=== PATIENT | female | born 1955 | race Caucasian/White ===

== ENCOUNTER 2019-11-28 16:51 | Inpatient (IN) | payer MEDICARE, OTHER ==
[2019-11-28 17:40] LABS: #Basophils 0.1 thou/uL (0.0-0.2); #Eosinphils 0.3 thou/uL (0.0-0.7); #Lymphocytes 1.3 thou/uL (1.20-3.40); #Monocytes 0.2 thou/uL (0.11-0.59); %Basophils 1.1 % (0.0-1.0); %Lymphocytes 26.9 % (21.0-51.0); %Monocytes 3.6 % (0.0-10.0); %Neutrophils 61.3 % (42.0-75.0); Hemoglobin 7.6 g/dL (12.0-16.0); Mean Corpuscular HGB CONC 32.7 g/dL (32.0-36.0); Mean Corpuscular Hemoglobin 29.7 pg (27.0-31.0); Mean Corpuscular Volume 90.7 fL (78.0-98.0); Mean Platelet Volume 6.8 fL (7.4-10.4); Platelet Count 272 thou/uL (130-400); Red Blood Cell (RBC) Count 2.57 mill/uL (4.20-5.40); White Blood Cell (WBC) Count 4.8 thou/uL (4.8-10.8)
[2019-11-28 18:01] LABS: Bilirubin Negative (Negative); Blood, Urine Negative (Negative); Glucose, Urine (Dipstick) Negative (Negative); Leukocyte Negative (Negative); Nitrite Negative (Negative); Protein, Urine (Dipstick) Negative (Neg-Trace); Urobilinogen 0.2 mg/dL (Less than 2)
[2019-11-28 18:02] LABS: ALT (SGPT) 11 U/L (8-55); AST (SGOT) 13 U/L (5-34); Acetaminophen Less than 6.0 mcg/mL (10.0-30.0); Albumin 1.6 g/dL (3.4-4.8); Alcohol Less than 10 mg/dL (Less than 10); Alkaline Phosphatase 114 U/L (40-110); Anion Gap 10 mmol/L (10-20); Anisocytosis MODERATE=16-30 cells (100X) (0-5/hpf); BUN (Urea Nitrogen) 9 mg/dL (9.8-20.1); Bilirubin, Total 0.2 mg/dL (0.2-1.2); Calc. Creatinine Clearance 0 mL/min (70-130); Calcium 6.8 mg/dL (7.8-10.44); Carbon Dioxide 24 mmol/L (23-31); Chloride 108 mmol/L (98-107); Estimated GFR-MDRD Greater than 90; Globulin 1.8 g/dL (2.4-3.5); Glucose 88 mg/dL (80-115); MDiff Complete? YES; Magnesium 1.6 mg/dL (1.6-2.6); Ovalocytes SLIGHT = 2-5 cells (100X) (0-1/hpf); Platelet Morphology Comment Appears Adequate; Polychromasia SLIGHT = 2-3 cells (100X) (0-2/hpf); Potassium 4.1 mmol/L (3.5-5.1); Protein, Total 3.4 g/dL (6.0-8.3); Salicylate Less than 8.0 mg/dL (15.0-30.0); Schistocytes SLIGHT = 2-5 cells (100X) (0-1/hpf); Sodium 138 mmol/L (136-145)
[2019-11-28 18:02] LABS: Clarity Clear (Clear)
[2019-11-28 18:09] LABS: Amphetamine Not Detected (NotDetected); Barbiturates Screen Not Detected (NotDetected); Benzodiazepine Screen Detected (NotDetected); Cocaine Metabolite Screen Not Detected (NotDetected); Medtox Control Line Valid? VALID (VALID); Medtox Reader # READER 1; Methadone Not Detected (NotDetected); Methamphetamine Not Detected (NotDetected); Opiate Screen Detected (NotDetected); Oxycodone Screen Not Detected (NotDetected); Phencyclidine (PCP) Not Detected (NotDetected); THC/Cannabinoid Screen Not Detected (NotDetected); Tricyclic Screen Not Detected (NotDetected)
--- NOTE | 2019-11-28 18:10 | RAD ---
SINGLE VIEW OF THE CHEST: 11/28/19 COMPARISON: None. HISTORY: Hypotension. FINDINGS: Single view of the chest shows a normal sized cardiomediastinal silhouette. Atelectasis is seen in delon th upper lobes. No consolidation or pleural effusion are seen. IMPRESSION: Bilateral upper lobe atelectasis. POS: C
[2019-11-28] MEDS ORDERED: Norepinephrine 8 MG in Dextrose 5% in Water 242 ML IVPB PRN (18:26)
[2019-11-28] MEDS ORDERED: Cefepime 2 GM VIAL ONE (18:59)
[2019-11-28] MEDS ORDERED: Vancomycin HCl 1.75 GM in Sodium Chloride 0.9% 500 ML IVPB ONE (19:15)
--- NOTE | 2019-11-28 19:20 | RAD ---
RADIOGRAPH CHEST 1 VIEW: DATE: 11/28/2019 TIME: 6:53 PM HISTORY: 64-year-old female status post central line placement COMPARISON: 11/28/2019 5:52 PM FINDINGS: Vertically descending catheter from right medial neck with distal tip overlying upper portion of righ t atrium is new since the prior study. This is a supine image, which would be insensitive for pneumothorax detection. The interstitial densities appear diffusely worse, with pulmonary venous engorgement now, on the curr ent study compared to the previous, but at least some of this could be all due to supine positioning. IMPRESSION: 1. Right internal jugular central venous catheter placement. 2. Apparent pulmonary venous congestion. 3. Recommend upright radiograph to rule out pneumothorax.
[2019-11-28] MEDS ORDERED: Norepinephrine 8 MG/0.9% NS 250 ML IVPB SCH (19:30)
[2019-11-28] MEDS ORDERED: Sodium Chloride 0.9% 1,000 ML IV SCH (19:30)
[2019-11-28 21:00] VITALS: BMI 28.0
--- NOTE | 2019-11-28 21:25 | HP ---
CHIEF COMPLAINT: Low blood pressure. HISTORY OF PRESENT ILLNESS: Ms. Nuñez is a 64-year-old female with past medical history of coronary artery disease, chronic bronchitis, chronic pain with Dilaudid pump implanted, was brought to the emergency room by EMS for hypotension. As per EMS, home health care nurse called the EMS due to low blood pressure. The patient was recently hospitalized at [facility] about 10 days ago for weakness, had cardiac workup and was discharged on cefdinir and Bactrim for urinary tract infection. The patient denies chest pain or shortness of breath. Workup in the emergency room, the patient was hypotensive with blood pressure 79/50, pulse is 73, low oxygen saturation of 89% on room air and the patient also was found to be hypothermic with a temperature of 95. A septic workup including viral panel was done in the ED. Central venous catheter was inserted and patient was started on pressors. Chest x-ray shows bilateral upper lobe atelectasis ?, ? pulmonary venous congestion. Urine drug screen is positive for benzos and opiates. The patient is being admitted to the intensive care unit for further management. PAST MEDICAL HISTORY: 1. Chronic bronchitis. 2. Coronary artery disease/MT. 3. Chronic pain. PAST SURGICAL HISTORY: 1. Skin cancer removal from nose. 2. Cholecystectomy. 3. Tonsillectomy. 4. Tubal ligation. PSYCHIATRIC HISTORY: Includes depression. ALLERGIES: NO KNOWN ALLERGIES. HOME MEDICATIONS: See home medication reconciliation form for updated medications. Home medications include Plavix and Dilaudid injection pump. REVIEW OF SYSTEMS: Review of 14 systems negative except what is mentioned in history of present illness. PHYSICAL EXAMINATION: GENERAL: The patient is awake, alert, oriented, does not appear to be in acute distress. VITAL SIGNS: Blood pressure was 70/50. After patient started on Levophed, current blood pressure 137/77, pulse is 91, temperature was 95.5, pulse oximetry was 89% on room air. Currently, it is 91% on 3 L. HEAD AND NECK: Normocephalic, atraumatic. NECK: Supple. No JVD. CHEST: Coarse bilateral breath sounds. HEART: S1, S2. Regular. ABDOMEN: Soft, nontender. Bowel sounds present. NEUROLOGIC: Awake, alert, oriented. No focal deficits. PSYCHIATRIC: Unable to assess. EXTREMITIES: No clubbing or cyanosis. LABORATORY DATA: Chest x-ray as mentioned above in history of present illness. Urine drug screen is positive for benzodiazepine and opiates. CBC; hemoglobin 7.6, platelets 272. BUN is 9, creatinine 0.6. Lactic acid 2.5. ASSESSMENT: 1. Shock?, septic? 2. Suspected viral pneumonia/COVID cannot be entirely ruled out. 3. Anemia, unknown baseline hemoglobin. Rectal exam; as per ER physician, yellow stool. 4. Chronic pain, on Dilaudid pump. The patient does not have the remote to turn it off. 5. Respiratory failure, ? acute/? Chronic. 6. Chronic bronchitis. 7. Coronary artery disease. 8. Hypothermia. PLAN: 1. Admit to ICU. 2. Continue with vasopressor for now. The patient is on Levophed, titrate to map of 65. 3. Dilaudid pump needs to be turned off. Currently, patient does not have access to the remote to turn it off at this point. I discussed the case with ER nurse. We will try to get hold of patient's family or physician, who has access to the pump so that it can be turned off. 4. Continue empiric IV antibiotics for now. 5. Pulmonary/Critical Care consulted for critical care management. 6. Given low hemoglobin, the patient on Plavix, GI bleed cannot be entirely ruled out, we will start the patient on IV proton pump inhibitor, monitor hemoglobin and hematocrit. 7. Re-consult home medications. 8. DVT prophylaxis with SCDs. 9. Expected length of stay, 2 midnights or more. Job ID: [id number]
[2019-11-28 22:25] LABS: Hemoglobin 7.9 g/dL (12.0-16.0)
[2019-11-28 22:41] LABS: Lactic Acid 1.4 mmol/L (0.5-2.2)
[2019-11-28] MEDS ORDERED: hydrOXYzine 25 MG TAB PO PRN (23:10)
[2019-11-28] MEDS ORDERED: Promethazine 25 MG TAB PO PRN (23:11)
[2019-11-28] MEDS ORDERED: Gabapentin 300 MG CAP PO PRN (23:11)
[2019-11-29] MEDS: Cefepime 1 GM in Sodium Chloride 0.9% 100 ML IVPB SCH ×3 (01:01→18:13)
[2019-11-29] MEDS: Pantoprazole 40 MG VIAL IVP SCH ×2 (01:02→07:51)
[2019-11-29] MEDS: Sodium Chloride 0.9% 1,000 ML IV SCH ×2 (01:02→06:18)
[2019-11-29 04:54] LABS: #Basophils 0.1 thou/uL (0.0-0.2); #Eosinphils 0.4 thou/uL (0.0-0.7); #Lymphocytes 1.7 thou/uL (1.20-3.40); #Monocytes 0.2 thou/uL (0.11-0.59); #Neutrophils 2.9 thou/uL (1.40-6.50); %Basophils 1.2 % (0.0-1.0); %Eosinophils 6.9 % (0.0-10.0); %Lymphocytes 32.3 % (21.0-51.0); %Monocytes 4.5 % (0.0-10.0); Mean Corpuscular HGB CONC 32.6 g/dL (32.0-36.0); Mean Corpuscular Hemoglobin 29.3 pg (27.0-31.0); Mean Corpuscular Volume 90.1 fL (78.0-98.0); Mean Platelet Volume 7.1 fL (7.4-10.4); Platelet Count 296 thou/uL (130-400); RBC Distribution Width 21.9 % (11.5-14.5); Red Blood Cell (RBC) Count 2.71 mill/uL (4.20-5.40); White Blood Cell (WBC) Count 5.3 thou/uL (4.8-10.8)
[2019-11-29 05:16] LABS: ALT (SGPT) 10 U/L (8-55); AST (SGOT) 13 U/L (5-34); Albumin 1.7 g/dL (3.4-4.8); Alkaline Phosphatase 126 U/L (40-110); Anion Gap 8 mmol/L (10-20); BUN (Urea Nitrogen) 8 mg/dL (9.8-20.1); Bilirubin, Total 0.3 mg/dL (0.2-1.2); Calc. Creatinine Clearance 89 mL/min (70-130); Calcium 7.2 mg/dL (7.8-10.44); Carbon Dioxide 25 mmol/L (23-31); Chloride 106 mmol/L (98-107); Estimated GFR-MDRD 88; Glucose 77 mg/dL (80-115); Potassium 3.9 mmol/L (3.5-5.1); Protein, Total 3.7 g/dL (6.0-8.3); Sodium 135 mmol/L (136-145)
[2019-11-29] MEDS ORDERED: Norepinephrine 8 MG in Dextrose 5% in Water 242 ML IVPB SCH (07:00)
[2019-11-29] MEDS: Vancomycin 1 GM in Premix Bag 1 BAG IVPB SCH ×2 (07:50→20:06)
[2019-11-29] MEDS ORDERED: Enoxaparin Sodium 40 MG/0.4 ML SYRINGE SC ONE (10:00)
--- NOTE | 2019-11-29 10:47 | CON ---
DATE OF CONSULTATION: HISTORY OF PRESENT ILLNESS: Nafisa Nuñez is a 64-year-old female, who was admitted to the hospital with hypotension. She has a longstanding history of chronic pain. She is on some kind of a Dilaudid pump prescribed elsewhere. She was brought to the ER with blood pressure of 79 systolic, respiratory rate 23, saturations 89% on room air, and pulse 73. She had no other symptoms except she was recently discharged from another hospital outside the area with a diagnosis of presumed UTI and some kind of cardiac workup done. PAST MEDICAL HISTORY: Apparently bronchitis and coronary artery disease. PAST SURGICAL HISTORY: Cholecystectomy, tonsils, tubal ligation, and nose surgery. HOME MEDICATIONS: Includes: 1. Metoprolol 25. 2. Soma 350. 3. Aspirin. 4. Amiodarone 200. 5. Hydroxyzine 50. 6. Omeprazole. 7. Tizanidine 4. 8. Hydrochlorothiazide 25. 9. Cymbalta 60. 10. Gabapentin 600. CURRENT MEDICATIONS: She is now on: 1. Maxipime. 2. Levophed. 3. Vancomycin. SOCIAL HISTORY: No alcohol or tobacco use. PHYSICAL EXAMINATION: VITAL SIGNS: Blood pressure 122/62, saturations are , respiratory rate 18. CHEST: No wheezing or crackles. CARDIAC: Normal S1 and S2. No gallops. ABDOMEN: No masses. LABORATORY DATA: White count 5,000, hematocrit 24, and platelet count 296. Lytes are normal. UA is normal. Drug screen shows opiates and benzodiazepines. So far, influenza negative. Awaiting COVID serology test. X-ray was clear. ASSESSMENT: 1. Hypotension probably medication-related. 2. Unknown coronary artery disease. 3. Chronic pain. PLAN: Await serology results. If this is negative she can be removed from the ICU. Continue hydration. Empiric antibiotics for presumed UTI. At this stage, nothing additional to offer. We will follow while in the ICU. This is a consultation note, 70 minutes, 50% direct patient care. Job ID: [id number]
[2019-11-29] MEDS ORDERED: Promethazine 25 MG TAB PO PRN (17:11)
[2019-11-29] MEDS ORDERED: tiZANidine HCl 4 MG TAB PO PRN (17:11)
[2019-11-29] MEDS ORDERED: Non-Formulary Item 1 EACH (Hydroxyzine Hcl [Hydroxyzine Hcl] 50 MG) PO PRN (17:11)
--- NOTE | 2019-11-29 17:59 | PDOC.HOSPP ---
- Subjective Encounter Date: 11/29/19 Encounter Time: 14:00 Subjective: Off Pressors. Feels better. Case d/w RN - Objective Vital Signs & Weight: Vital Signs (12 hours) Temp Pulse Resp BP Pulse Ox 11/29/19 13:45 98.6 F 83 16 122/76 97 11/29/19 08:00 96 Weight Admit Weight 148 lb Weight 148 lb 12.992 oz Most Recent Monitor Data Heart Rate from ECG 82 NIBP 121/70 NIBP BP-Mean 87 Respiration from ECG 10 SpO2 100 I&O: 11/28/19 11/29/19 11/30/19 06:59 06:59 06:59 Intake Total 940 240 Output Total 1025 460 Balance -85 -220 Result Diagrams: 11/29/19 04:00 11/29/19 04:00 Radiology Reviewed by me: Yes (CXR - reviewed) Hospitalist ROS - Review of Systems Respiratory: denies: cough, dry, shortness of breath, hemoptysis, SOB with excertion, pleuritic pain, sputum, wheezing, other Cardiovascular: denies: chest pain, palpitations, orthopnea, paroxysmal noc. dyspnea, edema, light headedness, other Gastrointestinal: denies: nausea, vomiting, abdominal pain, diarrhea, constipation, melena, hematochezia, other - Medication Medications: Active Medications Generic Name Dose Route Start Last Admin Trade Name Freq PRN Reason Stop Dose Admin Gabapentin 600 mg 11/28/19 23:11 11/29/19 01:00 Neurontin PO 11/29/19 23:12 600 mg ONE PRN Administration Pain Hydroxyzine HCl 50 mg 11/28/19 23:10 11/29/19 01:03 Atarax PO 11/29/19 23:11 50 mg ONE PRN Administration Anxiety/Agitation Cefepime HCl 1 gm/ Sodium 100 mls @ 200 mls/hr 11/29/19 02:00 11/29/19 11:08 Chloride IVPB 100 mls 0200,1000,1800 GERALD Administration Vancomycin HCl 1 gm/ Device 200 mls @ 200 mls/hr 11/29/19 08:00 11/29/19 07: 50 IVPB 200 mls 0800,2000 GERALD Administration Sodium Chloride 1,000 mls @ 75 mls/hr 11/28/19 21:30 11/29/19 06:18 Normal Saline 0.9% IV 1,000 mls .[id number] GERALD Administration Promethazine HCl 25 mg 11/28/19 23:11 11/29/19 14:38 Phenergan PO 11/29/19 23:12 25 mg ONE PRN Administration Nausea Sodium Chloride 10 ml 11/29/19 09:00 11/29/19 07:51 Flush - Normal Saline IVF 10 ml Q12HR GERALD Administration Hosp A/P - Plan Hypotension/Shock ?etio Off pressors Chronic pain on dilaudid pump GERD h/o HTN CAD Chronic Anemia Moderate PEM Hyponatremia PLAN: Pt transferred to Med Restart selected home meds Repeat CXR in AM Await cultures Cont empiric Atbx Echo AM labs Full code. DPOA- daughter
[2019-11-29] MEDS: DULoxetine 60 MG CAP PO SCH (20:05)
[2019-11-29] MEDS: Gabapentin 300 MG CAP PO SCH (20:05)
[2019-11-29] MEDS: Amiodarone 200 MG TAB PO SCH (20:06)
[2019-11-30] MEDS: Sodium Chloride 0.9% 1,000 ML IV SCH ×3 (01:07→20:44)
[2019-11-30] MEDS: Cefepime 1 GM in Sodium Chloride 0.9% 100 ML IVPB SCH ×3 (01:41→17:38)
[2019-11-30 06:02] LABS: #Basophils 0.1 thou/uL (0.0-0.2); #Eosinphils 0.6 thou/uL (0.0-0.7); #Lymphocytes 1.8 thou/uL (1.20-3.40); #Monocytes 0.4 thou/uL (0.11-0.59); #Neutrophils 4.1 thou/uL (1.40-6.50); %Eosinophils 8.9 % (0.0-10.0); %Lymphocytes 25.8 % (21.0-51.0); %Monocytes 5.5 % (0.0-10.0); %Neutrophils 58.8 % (42.0-75.0); Hemoglobin 8.7 g/dL (12.0-16.0); Mean Corpuscular HGB CONC 32.4 g/dL (32.0-36.0); Mean Corpuscular Hemoglobin 29.4 pg (27.0-31.0); Mean Corpuscular Volume 90.9 fL (78.0-98.0); Mean Platelet Volume 6.9 fL (7.4-10.4); Platelet Count 302 thou/uL (130-400); Red Blood Cell (RBC) Count 2.95 mill/uL (4.20-5.40); White Blood Cell (WBC) Count 6.9 thou/uL (4.8-10.8)
[2019-11-30 06:21] LABS: ALT (SGPT) 11 U/L (8-55); AST (SGOT) 14 U/L (5-34); Albumin 1.8 g/dL (3.4-4.8); Alkaline Phosphatase 137 U/L (40-110); Anion Gap 10 mmol/L (10-20); BUN (Urea Nitrogen) 6 mg/dL (9.8-20.1); Bilirubin, Total 0.3 mg/dL (0.2-1.2); Calc. Creatinine Clearance 89 mL/min (70-130); Calcium 7.7 mg/dL (7.8-10.44); Carbon Dioxide 24 mmol/L (23-31); Chloride 107 mmol/L (98-107); Estimated GFR-MDRD 88; Globulin 2.3 g/dL (2.4-3.5); Glucose 84 mg/dL (80-115); Magnesium 1.7 mg/dL (1.6-2.6); Phosphorus 2.9 mg/dL (2.3-4.7); Potassium 3.9 mmol/L (3.5-5.1); Protein, Total 4.1 g/dL (6.0-8.3); Sodium 137 mmol/L (136-145)
[2019-11-30 07:14] LABS: Vancomycin, Trough 19.8 ug/mL
[2019-11-30] MEDS: Enoxaparin Sodium 40 MG/0.4 ML SYRINGE SC SCH (08:08)
[2019-11-30] MEDS: Magnesium Oxide 400 MG TAB PO SCH (08:08)
[2019-11-30] MEDS: Potassium Chloride 20 MEQ TAB PO SCH (08:09)
[2019-11-30] MEDS: DULoxetine 60 MG CAP PO SCH ×2 (08:09→20:45)
[2019-11-30] MEDS: Aspirin Chewable 81 MG TAB PO SCH (08:09)
[2019-11-30] MEDS: Vancomycin 1 GM in Premix Bag 1 BAG IVPB SCH ×2 (08:09→20:50)
[2019-11-30] MEDS: Gabapentin 300 MG CAP PO SCH ×4 (08:09→20:45)
[2019-11-30] MEDS: Amiodarone 200 MG TAB PO SCH ×2 (08:29→20:45)
[2019-11-30] MEDS: Clopidogrel Bisulfate 75 MG TAB PO SCH (08:29)
--- NOTE | 2019-11-30 09:34 | RAD ---
PORTABLE CHEST: Date: 11/30/2019 PROVIDED CLINICAL HISTORY: Shortness of breath. FINDINGS: Comparison with 11/28/2019. The lungs are hypoinflated, limiting evaluation. The cardiac silhouette appears prominent. Right IJ c entral line is again seen, tip of which projects overlying expected location of cavoatrial junction. No focal consolidation, pleural fluid, or pneumothorax apparent. IMPRESSION: Hypoinflated exam. POS: HONEY
[2019-12-01] MEDS ORDERED: Melatonin 3 MG TAB PO SCH (00:15)
[2019-12-01] MEDS: Cefepime 1 GM in Sodium Chloride 0.9% 100 ML IVPB SCH (01:42)
[2019-12-01 06:48] LABS: #Basophils 0.1 thou/uL (0.0-0.2); #Eosinphils 0.2 thou/uL (0.0-0.7); #Lymphocytes 1.3 thou/uL (1.20-3.40); #Monocytes 0.3 thou/uL (0.11-0.59); #Neutrophils 3.1 thou/uL (1.40-6.50); %Basophils 1.1 % (0.0-1.0); %Eosinophils 4.4 % (0.0-10.0); %Lymphocytes 25.6 % (21.0-51.0); %Monocytes 5.3 % (0.0-10.0); %Neutrophils 63.6 % (42.0-75.0); Hemoglobin 8.1 g/dL (12.0-16.0); Mean Corpuscular HGB CONC 32.5 g/dL (32.0-36.0); Mean Corpuscular Hemoglobin 29.9 pg (27.0-31.0); Mean Corpuscular Volume 91.8 fL (78.0-98.0); Mean Platelet Volume 6.7 fL (7.4-10.4); Platelet Count 295 thou/uL (130-400); Red Blood Cell (RBC) Count 2.72 mill/uL (4.20-5.40); White Blood Cell (WBC) Count 4.9 thou/uL (4.8-10.8)
[2019-12-01 07:13] LABS: ALT (SGPT) 11 U/L (8-55); AST (SGOT) 14 U/L (5-34); Albumin 1.8 g/dL (3.4-4.8); Alkaline Phosphatase 133 U/L (40-110); Anion Gap 7 mmol/L (10-20); BUN (Urea Nitrogen) 6 mg/dL (9.8-20.1); Bilirubin, Total 0.5 mg/dL (0.2-1.2); Calc. Creatinine Clearance 111 mL/min (70-130); Calcium 7.7 mg/dL (7.8-10.44); Carbon Dioxide 29 mmol/L (23-31); Chloride 109 mmol/L (98-107); Estimated GFR-MDRD Greater than 90; Globulin 2.1 g/dL (2.4-3.5); Glucose 76 mg/dL (80-115); Magnesium 1.8 mg/dL (1.6-2.6); Phosphorus 2.5 mg/dL (2.3-4.7); Potassium 3.2 mmol/L (3.5-5.1); Protein, Total 3.9 g/dL (6.0-8.3); Sodium 142 mmol/L (136-145)
[2019-12-01] MEDS: Vancomycin 1 GM in Premix Bag 1 BAG IVPB SCH ×2 (08:35→09:04)
[2019-12-01] MEDS: Potassium Chloride 20 MEQ TAB PO SCH (08:37)
[2019-12-01] MEDS: Clopidogrel Bisulfate 75 MG TAB PO SCH (08:39)
[2019-12-01] MEDS: Aspirin Chewable 81 MG TAB PO SCH (08:39)
[2019-12-01] MEDS: DULoxetine 60 MG CAP PO SCH ×2 (08:39→21:07)
[2019-12-01] MEDS: Gabapentin 300 MG CAP PO SCH ×3 (08:39→21:07)
[2019-12-01] MEDS: Magnesium Oxide 400 MG TAB PO SCH (08:39)
[2019-12-01] MEDS: Amiodarone 200 MG TAB PO SCH ×2 (08:39→21:07)
[2019-12-01] MEDS: Enoxaparin Sodium 40 MG/0.4 ML SYRINGE SC SCH (08:40)
--- NOTE | 2019-12-01 08:42 | PDOC.HOSPP ---
- Subjective Encounter Date: 11/30/19 Encounter Time: 16:00 Subjective: Patient seen and examined for Hypotension requiring pressors. Feels better. Confused. No new complaints. No overnight events - Objective Vital Signs & Weight: Vital Signs (12 hours) Temp Pulse Resp BP Pulse Ox 12/01/19 00:43 98.4 F 83 18 117/72 94 L 11/30/19 20:44 97.7 F 86 18 140/83 94 L Weight Admit Weight 148 lb Weight 148 lb 12.992 oz Most Recent Monitor Data Heart Rate from ECG 82 NIBP 121/70 NIBP BP-Mean 87 Respiration from ECG 10 SpO2 100 I&O: 11/30/19 12/01/19 12/02/19 06:59 06:59 06:59 Intake Total 5166 548 8305 Output Total 2510 1850 Balance -620 971 -395 Result Diagrams: 12/01/19 06:25 12/01/19 03:30 Radiology Reviewed by me: Yes (CXR - no infiltrate) EKG Reviewed by me: Yes (SR earlier) Hospitalist ROS - Review of Systems ROS unobtainable: due to mental status - Medication Medications: Active Medications Generic Name Dose Route Start Last Admin Trade Name Freq PRN Reason Stop Dose Admin Amiodarone HCl 200 mg 11/29/19 21:00 12/01/19 08:39 Cordarone PO 200 mg Q12HR GERALD Administration Aspirin 81 mg 11/30/19 09:00 12/01/19 08:39 Aspirin Chewable PO 81 mg DAILY GERALD Administration Clopidogrel Bisulfate 75 mg 11/30/19 09:00 12/01/19 08:39 Plavix PO 75 mg DAILY GERALD Administration Duloxetine HCl 60 mg 11/29/19 21:00 12/01/19 08:39 Cymbalta PO 60 mg BID GERALD Administration Enoxaparin Sodium 40 mg 11/30/19 09:00 12/01/19 08:40 Lovenox SC 40 mg 0900 GERALD Administration Gabapentin 600 mg 11/29/19 21:00 12/01/19 08:39 Neurontin PO 600 mg QID GERALD Administration Cefepime HCl 1 gm/ Sodium 100 mls @ 200 mls/hr 11/29/19 02:00 12/01/19 01:42 Chloride IVPB 100 mls 0200,1000,1800 GERALD Administration Vancomycin HCl 1 gm/ Device 200 mls @ 200 mls/hr 11/29/19 08:00 12/01/19 08: 35 IVPB 200 mls 08,1999 GERALD Administration Sodium Chloride 1,000 mls @ 75 mls/hr 11/28/19 21:30 11/30/19 20:44 Normal Saline 0.9% IV 1,000 mls .[id number] GERALD Administration Magnesium Oxide 400 mg 11/30/19 09:00 12/01/19 08:39 Magnesium Oxide PO 400 mg DAILY GERALD Administration Pantoprazole Sodium 40 mg 11/29/19 21:00 12/01/19 08:39 Protonix PO 40 mg BID GERALD Administration Potassium Chloride 20 meq 11/30/19 08:00 12/01/19 08:37 K-Dur PO 20 meq QAM-WM GERALD Administration Sodium Chloride 10 ml 11/29/19 09:00 12/01/19 08:40 Flush - Normal Saline IVF 10 ml Q12HR GERALD Administration - Exam General Appearance: NAD Heart: RRR, no gallops, no rubs, normal peripheral pulses Respiratory: no wheezes, no rales, normal chest expansion, rhonchi Gastrointestinal: non-tender, non-distended, normal bowel sounds, no palpable masses Extremities: no cyanosis, no clubbing, no edema Extremities - other findings: no calf tenderness Neurological: no new deficit Hosp A/P - Plan DVT proph w/SCDs Hypotension/Shock ?etio Off pressors ?Septic shock - POA Acute hypoxic resp failure - POA Hypothermia Chronic pain on dilaudid pump GERD h/o HTN CAD Chronic Anemia Moderate PEM Hyponatremia PLAN: Cont isolation for possible COVID 19 Await cultures Cont empiric Atbx Echo - normal EF Check Cortisol/TSH in AM AM labs Cont IVF Check Orthostatics in AM
[2019-12-01] MEDS ORDERED: Sodium Chloride 0.9% 1,000 ML IV SCH (08:52)
[2019-12-01] MEDS ORDERED: Levothyroxine Sodium 50 MCG TAB PO SCH (12:45)
--- NOTE | 2019-12-01 13:18 | CT ---
CT BRAIN: DATE: 12/01/2019. PROVIDED CLINICAL HISTORY: Altered mental status. FINDINGS: No comparisons. The ventricular system appears normal in size and morphology. There is no evidence for intracranial hemorrhage or mass effect. The extracranial soft tissues and osseous structures dem onstrate an unremarkable CT appearance. IMPRESSION: No evidence for intracranial hemorrhage or mass effect. POS: HONEY
[2019-12-01] MEDS: Cyclobenzaprine 10 MG TAB PO PRN (13:30)
--- NOTE | 2019-12-01 18:13 | PRG ---
DATE OF SERVICE: 12/01/2019 SUBJECTIVE: Ms. Nuñez complains of being weak. She has not been able to even get to the bedside toilet and is stooling in her diaper. She thinks that she is going to be able to go home, but it appears to me that she is going to need a assisted facility. She had a CT of the head today, which showed no obvious hemorrhage or mass effect. OBJECTIVE: VITAL SIGNS: Blood pressure 145/83, although she does have an orthostatic component with standing blood pressure 106/76, saturation 95% on 2 L oxygen. GENERAL: She appears weak and globally debilitated. LUNGS: Rhonchi, but no wheezing. HEART: Regular rate and rhythm. ABDOMEN: Soft. There is no organomegaly. She has normal bowel sounds. EXTREMITIES: She has trace edema. LABORATORY DATA: White count 4900, hemoglobin was 8.1, platelet count 295,000. Her electrolytes earlier today remarkable for sodium 142, potassium 3.2, chloride 109, BUN 8, creatinine 0.5. Calcium, magnesium, and phosphorus were normal. Her TSH is high. Cortisol is normal. Echocardiogram shows preserved ejection fraction 55% to 60%. She does have moderate pulmonary hypertension with RVSP 48. IMPRESSION: 1. Pneumonia, recovering with significant residual weakness. 2. Hypothyroidism. 3. Moderate pulmonary hypertension with right ventricular systolic pressure 48. RECOMMENDATION: I have strongly encouraged that she will be out of bed. I think that going home isn't an unreasonable consideration at this point, and she would appear to be a good candidate for rehab on the inpatient basis. She is going any thyroid supplementation. Job ID: [id number]
[2019-12-01] MEDS: Promethazine 25 MG TAB PO PRN (19:11)
--- NOTE | 2019-12-01 20:04 | PDOC.HOSPP ---
- Subjective Encounter Date: 12/01/19 Encounter Time: 11:30 Subjective: Patient seen and examined for AMS/Hypotension. No fever/chills. Intermittent confusion. States that she has been here for last 5 days. No new complaints. No overnight events - Objective Vital Signs & Weight: Vital Signs (12 hours) BP BP 12/01/19 09:15 134/86 106/67 Weight Admit Weight 148 lb Weight 148 lb 12.992 oz Most Recent Monitor Data Heart Rate from ECG 82 NIBP 121/70 NIBP BP-Mean 87 Respiration from ECG 10 SpO2 100 I&O: 11/30/19 12/01/19 12/02/19 06:59 06:59 06:59 Intake Total 7550 188 0127 Output Total 2510 1850 Balance -620 720 915 Result Diagrams: 12/02/19 05:01 12/02/19 05:01 Hospitalist ROS - Review of Systems ROS unobtainable: due to mental status - Medication Medications: Active Medications Generic Name Dose Route Start Last Admin Trade Name Freq PRN Reason Stop Dose Admin Amiodarone HCl 200 mg 11/29/19 21:00 12/01/19 08:39 Cordarone PO 200 mg Q12HR GERALD Administration Aspirin 81 mg 11/30/19 09:00 12/01/19 08:39 Aspirin Chewable PO 81 mg DAILY GERALD Administration Clopidogrel Bisulfate 75 mg 11/30/19 09:00 12/01/19 08:39 Plavix PO 75 mg DAILY GERALD Administration Cyclobenzaprine HCl 5 mg 12/01/19 12:17 12/01/19 13:30 Flexeril PO 12/03/19 12:18 5 mg TID PRN Administration Muscle Spasm Duloxetine HCl 60 mg 11/29/19 21:00 12/01/19 08:39 Cymbalta PO 60 mg BID GERALD Administration Gabapentin 300 mg 12/01/19 15:00 12/01/19 16:15 Neurontin PO 300 mg TID GERALD Administration Pantoprazole Sodium 40 mg 11/29/19 21:00 12/01/19 08:39 Protonix PO 40 mg BID GERALD Administration Potassium Chloride 20 meq 11/30/19 08:00 12/01/19 08:37 K-Dur PO 20 meq QAM-WM GERALD Administration Promethazine HCl 25 mg 12/01/19 18:49 12/01/19 19:11 Phenergan PO 25 mg Q6H PRN Administration Nausea Sodium Chloride 10 ml 11/29/19 09:00 12/01/19 08:40 Flush - Normal Saline IVF 10 ml Q12HR GERALD Administration - Exam General Appearance: NAD Neck: supple, no JVD Heart: RRR, no gallops Respiratory: CTAB, no rales, no ronchi Gastrointestinal: soft, non-tender, normal bowel sounds Extremities: no cyanosis Neurological: no new deficit Hosp A/P - Plan DVT proph w/SCDs Hypotension/Shock ?etio Off pressors ?Septic shock - POA Acute hypoxic resp failure - POA Hypothermia Toxic Metabolic Encephalopathy - POA Chronic pain on dilaudid pump GERD h/o HTN CAD Chronic Anemia Moderate PEM Hyponatremia Hypothyroidism PLAN: DC COVID 19 isolation Cont empiric Atbx Start low dose Levothyroxine Replace Potassium DC IVF per patient req Orthostatics reviewed - repeat in AM Case d/w daughter in detail - was on phone for >40 mins Record req
[2019-12-01] MEDS: Melatonin 3 MG TAB PO PRN (21:07)
[2019-12-02] MEDS ORDERED: Calcium Carbonate 500 MG ChewTAB PO PRN (04:45)
[2019-12-02] MEDS: Levothyroxine Sodium 50 MCG TAB PO SCH (04:55)
[2019-12-02] MEDS ORDERED: HYDROcodone/Acetaminophen 5/325 mg Tablet PO SCH (05:00)
[2019-12-02 05:18] LABS: #Basophils 0.1 thou/uL (0.0-0.2); #Eosinphils 0.2 thou/uL (0.0-0.7); #Lymphocytes 1.3 thou/uL (1.20-3.40); #Monocytes 0.4 thou/uL (0.11-0.59); #Neutrophils 4.5 thou/uL (1.40-6.50); %Basophils 1.4 % (0.0-1.0); %Eosinophils 3.2 % (0.0-10.0); %Lymphocytes 20.1 % (21.0-51.0); %Monocytes 6.5 % (0.0-10.0); %Neutrophils 68.7 % (42.0-75.0); Hemoglobin 8.5 g/dL (12.0-16.0); Mean Corpuscular HGB CONC 32.5 g/dL (32.0-36.0); Mean Corpuscular Hemoglobin 29.7 pg (27.0-31.0); Mean Corpuscular Volume 91.4 fL (78.0-98.0); Platelet Count 288 thou/uL (130-400); RBC Distribution Width 21.9 % (11.5-14.5); Red Blood Cell (RBC) Count 2.85 mill/uL (4.20-5.40); White Blood Cell (WBC) Count 6.5 thou/uL (4.8-10.8)
[2019-12-02 05:37] LABS: ALT (SGPT) 12 U/L (8-55); AST (SGOT) 13 U/L (5-34); Alkaline Phosphatase 141 U/L (40-110); Anion Gap 7 mmol/L (10-20); BUN (Urea Nitrogen) 5 mg/dL (9.8-20.1); Bilirubin, Total 0.6 mg/dL (0.2-1.2); Calc. Creatinine Clearance 109 mL/min (70-130); Calcium 7.6 mg/dL (7.8-10.44); Carbon Dioxide 28 mmol/L (23-31); Chloride 107 mmol/L (98-107); Estimated GFR-MDRD Greater than 90; Globulin 2.2 g/dL (2.4-3.5); Glucose 76 mg/dL (80-115); Magnesium 1.8 mg/dL (1.6-2.6); Protein, Total 4.2 g/dL (6.0-8.3); Sodium 139 mmol/L (136-145)
[2019-12-02] MEDS ORDERED: Potassium Phosphate 15 MMOL in Sodium Chloride 0.9% 250 ML 250 ML IVPB SCH (07:45)
[2019-12-02] MEDS: Promethazine 25 MG TAB PO PRN ×2 (08:24→14:05)
[2019-12-02] MEDS: DULoxetine 60 MG CAP PO SCH ×2 (08:24→21:25)
[2019-12-02] MEDS: Aspirin Chewable 81 MG TAB PO SCH (08:25)
[2019-12-02] MEDS: Gabapentin 300 MG CAP PO SCH ×3 (08:25→21:25)
[2019-12-02] MEDS: Clopidogrel Bisulfate 75 MG TAB PO SCH (08:25)
[2019-12-02] MEDS: Potassium Chloride 20 MEQ TAB PO SCH ×2 (08:25→17:20)
[2019-12-02] MEDS: Enoxaparin Sodium 30 MG/0.3 ML SYRINGE SC SCH (08:25)
[2019-12-02] MEDS: Amiodarone 200 MG TAB PO SCH ×2 (08:25→21:25)
--- NOTE | 2019-12-02 10:57 | PRG ---
DATE OF SERVICE: 12/02/2019 SUBJECTIVE: A 64-year-old female who was hypertensive when she arrived. Cultures are negative. OBJECTIVE: VITAL SIGNS: Blood pressure is improved at 170/77, temperature 98, pulse 90, respiratory rate 18. CHEST: No wheezing or crackles. CARDIAC: Normal S1 and S2. No gallops. ABDOMEN: No masses. LABORATORY DATA: She is anemic, potassium is 3, otherwise stable. CT head was done yesterday, which was negative. ASSESSMENT: Hypertension, resolved. Hypothyroidism. Chronic pain syndrome. PLAN: From pulmonary standpoint, she appears to be much improved. She is eager to go home. The x-ray showed a nonspecific left basilar infiltrate. This could be related to hypertension. She is stable for discharge home anytime. Pulmonary with follow at a distance. Please call if needed. Job ID: [id number]
--- NOTE | 2019-12-02 11:12 | PDOC.HOSPP ---
- Subjective Encounter Date: 12/02/19 Encounter Time: 11:11 Subjective: Patient seen and examined for Encephalopathy/Hypotension. No CP. No new complaints. No overnight events - Objective Vital Signs & Weight: Vital Signs (12 hours) Temp Pulse Resp BP BP BP Pulse Ox 12/02/19 08:21 98.2 F 90 117/77 103/67 125/75 93 L 12/02/19 08:00 93 L 12/02/19 07:55 98.7 F 78 16 149/73 H 95 Weight Admit Weight 148 lb Weight 148 lb 12.992 oz Most Recent Monitor Data Heart Rate from ECG 82 NIBP 121/70 NIBP BP-Mean 87 Respiration from ECG 10 SpO2 100 I&O: 12/01/19 12/02/19 12/03/19 06:59 06:59 06:59 Intake Total 720 3255 Output Total 3200 400 Balance 720 55 -400 Result Diagrams: 12/02/19 05:01 12/02/19 05:01 Additional Labs: Laboratory Tests 12/01/19 12/01/19 12/02/19 09:24 09:24 05:01 Potassium 3.0 L Phosphorus 2.0 L Albumin 2.0 L Free T4 0.57 L TSH 3rd Generation 14.7046 H Radiology Reviewed by me: Yes (CT brain - negative) Hospitalist ROS - Review of Systems Cardiovascular: denies: chest pain, palpitations, orthopnea, paroxysmal noc. dyspnea, edema, light headedness, other Gastrointestinal: reports: diarrhea (mild). denies: nausea, vomiting, abdominal pain, constipation, melena, hematochezia, other - Medication Medications: Active Medications Generic Name Dose Route Start Last Admin Trade Name Freq PRN Reason Stop Dose Admin Amiodarone HCl 200 mg 11/29/19 21:00 12/02/19 08:25 Cordarone PO 200 mg Q12HR GERALD Administration Aspirin 81 mg 11/30/19 09:00 12/02/19 08:25 Aspirin Chewable PO 81 mg DAILY GERALD Administration Clopidogrel Bisulfate 75 mg 11/30/19 09:00 12/02/19 08:25 Plavix PO 75 mg DAILY GERALD Administration Cyclobenzaprine HCl 5 mg 12/01/19 12:17 12/01/19 13:30 Flexeril PO 12/03/19 12:18 5 mg TID PRN Administration Muscle Spasm Duloxetine HCl 60 mg 11/29/19 21:00 12/02/19 08:24 Cymbalta PO 60 mg BID GERALD Administration Enoxaparin Sodium 30 mg 12/02/19 09:00 12/02/19 08:25 Lovenox SC 30 mg 0900 GERALD Administration Potassium Phosphate 15 mmol/ 255 mls @ 62.5 mls/hr 12/02/19 07:45 12/02/19 09 :35 Sodium Chloride IVPB 12/02/19 11:45 255 mls NOW GERALD Administration Levothyroxine Sodium 50 mcg 12/02/19 06:00 12/02/19 04:55 Synthroid PO 50 mcg 0600 GERALD Administration Melatonin 3 mg 12/01/19 18:02 12/01/19 21:07 Melatonin PO 3 mg HS PRN Administration Insomnia Potassium Chloride 20 meq 12/02/19 08:00 12/02/19 08:25 K-Dur PO 20 meq BID-WM GERALD Administration Promethazine HCl 25 mg 12/01/19 18:49 12/02/19 08:24 Phenergan PO 25 mg Q6H PRN Administration Nausea Sodium Chloride 10 ml 11/29/19 09:00 12/02/19 08:25 Flush - Normal Saline IVF 10 ml Q12HR GERALD Administration - Exam General Appearance: NAD Heart: RRR, no gallops Respiratory: no wheezes, no ronchi Gastrointestinal: non-tender, non-distended, normal bowel sounds Extremities: no cyanosis Neurological: no new deficit Hosp A/P - Plan DVT proph w/SCDs Hypotension/Shock requiring pressors - Sepsis ruled out. Hypotension prob due to hypoalbuminemia/medications Acute hypoxic resp failure - ruled out Hypothermia - resolved Toxic Metabolic Encephalopathy - improving Chronic pain on dilaudid pump GERD h/o HTN CAD Chronic Anemia Moderate PEM Hyponatremia Hypothyroidism PLAN: Atbx dced Replace electrolytes Cont Levothyroxine Repeat Orthostatics in AM Case d/w daughter Add Tina PRN Increase Gabapentin 600 mg TID Records reviewed
[2019-12-02] MEDS: Loperamide HCl 2 MG CAP PO PRN ×2 (11:39→17:25)
[2019-12-02] MEDS: HYDROcodone/Acetaminophen 5/325 mg Tablet PO PRN ×2 (11:41→21:36)
[2019-12-03] MEDS: Melatonin 3 MG TAB PO PRN (01:01)
[2019-12-03] MEDS: Loperamide HCl 2 MG CAP PO PRN ×2 (01:04→08:34)
[2019-12-03] MEDS: Cyclobenzaprine 10 MG TAB PO PRN (03:46)
[2019-12-03 06:09] LABS: Albumin 1.9 g/dL (3.4-4.8); Anion Gap 9 mmol/L (10-20); BUN (Urea Nitrogen) 6 mg/dL (9.8-20.1); BUN/Creatinine Ratio 10.53; Calc. Creatinine Clearance 105 mL/min (70-130); Calcium 7.4 mg/dL (7.8-10.44); Carbon Dioxide 24 mmol/L (23-31); Chloride 109 mmol/L (98-107); Estimated GFR-MDRD Greater than 90; Glucose 75 mg/dL (80-115); Phosphorus 2.3 mg/dL (2.3-4.7); Potassium 3.6 mmol/L (3.5-5.1); Sodium 138 mmol/L (136-145)
[2019-12-03] MEDS: Levothyroxine Sodium 50 MCG TAB PO SCH (06:10)
[2019-12-03] MEDS: Promethazine 25 MG TAB PO PRN (06:10)
[2019-12-03] MEDS: Potassium Chloride 20 MEQ TAB PO SCH ×2 (08:34→16:32)
[2019-12-03] MEDS: Amiodarone 200 MG TAB PO SCH (08:34)
[2019-12-03] MEDS: Clopidogrel Bisulfate 75 MG TAB PO SCH (08:34)
[2019-12-03] MEDS: DULoxetine 60 MG CAP PO SCH (08:34)
[2019-12-03] MEDS: Enoxaparin Sodium 30 MG/0.3 ML SYRINGE SC SCH (08:34)
[2019-12-03] MEDS: Gabapentin 300 MG CAP PO SCH ×2 (08:34→14:57)
[2019-12-03] MEDS: Aspirin Chewable 81 MG TAB PO SCH (08:34)
[2019-12-03 08:52] VITALS: TEMP 98.8
[2019-12-03] MEDS ORDERED: hydrOXYzine 25 MG TAB PO PRN (09:18)
--- NOTE | 2019-12-03 10:32 | PRG ---
DATE OF SERVICE: 12/03/2019 SUBJECTIVE: This morning, she is awake, responsive, going home. OBJECTIVE: VITAL SIGNS: Temperature 99, pulse 86, respiratory rate 16, sats 96% on room air, blood pressure 120/75. CHEST: No wheezing or crackles. CARDIAC: Normal S1 and S2. No gallops. ABDOMEN: No masses. LABORATORY DATA: Lytes are normal. ASSESSMENT: 1. Hypotension, resolved. 2. Chronic pain syndrome. PLAN: Home any time. Pulmonary will follow at a distance. Job ID: [id number]
[2019-12-03] MEDS: HYDROcodone/Acetaminophen 5/325 mg Tablet PO PRN (11:40)
[2019-12-03 12:03] VITALS: BP 115/79
--- NOTE | 2019-12-03 19:47 | DIS ---
DATE OF ADMISSION: 11/28/2019 DATE OF DISCHARGE: 12/03/2019 DISCHARGE DISPOSITION: Home with [facility]. FOLLOWUP: Follow up with primary care physician as scheduled. The patient was seen on the day of discharge. Denies any new complaints. No chest pain, shortness of breath, or palpitations reported. BRIEF HOSPITAL COURSE: The patient is a 64-year-old female with chronic pain syndrome, coronary artery disease, and hypertension, presented to the emergency room with confusion along with low blood pressure. Her blood pressure in the emergency room was in systolic 70s with O2 saturation of 89%. A central line was placed. She was started on empiric antibiotics with Levophed. Echocardiogram showed normal ejection fraction of 55% to 60% with mild mitral regurgitation. Her cultures came back negative. Respiratory viral panel was negative. COVID-19 testing was negative. Her WBC counts were normal without any left shift. Antibiotics were later discontinued. She was also found to have moderate protein energy malnutrition with albumin of 1.8 with a total protein of 3.9. Her hypotension was probably multifactorial. Metoprolol and HCTZ have been discontinued. Due to abnormal TSH, low-dose levothyroxine has been started. She was advised to minimize the muscle relaxants. Inpatient rehab was recommended, however, the patient declined. She will benefit from a 24-hour supervision. Fall precaution was emphasized. SIGNIFICANT LABORATORY DATA: Cortisols 17. TSH 14.7. Free T4 of 0.57. Potassium 3.2. Phosphorus 2.0, sodium 135. WBC 4.8, with hemoglobin 7.6, and platelet count 272. Hemoglobin at discharge is 8.5. FINAL DIAGNOSES: 1. Hypovolemic shock, requiring pressors. Sepsis has been ruled out. 2. Acute hypoxic respiratory failure on admission, probably secondary to significant hypotension, resolved. 3. Hypothermia on admission, resolved. 4. Toxic metabolic encephalopathy on admission, resolved. 5. Chronic pain syndrome, on Dilaudid pump. 6. Gastroesophageal reflux disease. 7. History of hypertension. Please note, antihypertensives have been discontinued. 8. Coronary artery disease. 9. Chronic anemia. 10. Moderate protein energy malnutrition. 11. Hyponatremia. 12. Hypophosphatemia. 13. Hypothyroidism. Job ID: [id number]
--- NOTE | 2019-12-04 04:00 | PQF ---
[employer] Technician Crystal Reports Winform Viewer KEAGAN SHARP HENRIETTA TRACY MD [id number] [id number] CLINICAL DOCUMENTATION CLARIFICATION FORM: POST DISCHARGE Addendum to original discharge summary date: ____ Late entry note date: __ DATE:12/04/19 ATTN: Henrietta Tracy Please exercise your independent, professional judgment in responding to the clarification form. Clinical indicators are provided on the bottom of this form for your review Can you please further clarify the etiology fo hypotension? Please check appropriate box(s): [ x ] Hypotension due to hypoalbuminemia [ x ] Hypotension due to dehydration [ x ] Hypotension due to medication [ x ] Hypotension due to Toxic encephalopathy [ ] Hypotension due Acute respiratory failure [ ] Other diagnosis [ ] Unable to determine In addition, please specify: Present on Admission (POA): [ x ] Yes [ ] No [ ] Unable to determine For continuity of documentation, please document condition throughout progress notes and discharge summary. Thank You. CLINICAL INDICATORS - SIGNS / SYMPTOMS / LABS Hospitalist PN 4/6 pg.5- Hypotension prob due to hypoalbuminemia/medication DS pg.1- Presented to ER with confusion along with low blood pressure DS pg.1- Her hypotension was probably multi factorial Metoprolol and HCTZ have been discontinued RISK FACTORS Hypovolemic shock-DS pg.2 Acute respiratory failure- DS pg.2 Hypothermia- DS pg.2 Hyponatremia-DS pg.2 Hypophosphatemia-DS pg.2 TREATMENTS: IV Fluids- MAR Levophed IV- MAR Chest X ray 4 CT Brain 11/30 Pulmonary Consult- Dr. Hunt BP Monitoring- Vital signs (This form is maintained as a part of the permanent medical record) 2014 [employer] All Rights Reserved [email or web address]
== END 2019-12-03 17:53 | disposition home health service (06) | DRG 843 ==
LOC: ERS 16:51 → CCU 19:37 → T4-B 11-29 14:23
PROVIDERS: ADMIT Internal Medicine; ATTEND Internal Medicine
PROC: 3E033XZ Introduction of Vasopressor into Peripheral Vein, Percutaneous Approach (ICD-10-PCS; principal; 2019-11-28)
PROC: 8E0ZXY6 Isolation (ICD-10-PCS; 2019-11-28)
PROC: 02HV33Z Insertion of Infusion Device into Superior Vena Cava, Percutaneous Approach (ICD-10-PCS; 2019-11-28)
DX: E88.09 Other disorders of plasma-protein metabolism, not elsewhere classified (principal); R57.1 Hypovolemic shock; J96.01 Acute respiratory failure with hypoxia; G92 Toxic encephalopathy; E44.0 Moderate protein-calorie malnutrition; E87.1 Hypo-osmolality and hyponatremia; I95.2 Hypotension due to drugs; G89.4 Chronic pain syndrome; K21.9 Gastro-esophageal reflux disease without esophagitis; I10 Essential (primary) hypertension; I25.10 Atherosclerotic heart disease of native coronary artery without angina pectoris; D64.9 Anemia, unspecified; E83.39 Other disorders of phosphorus metabolism; T68.XXXA Hypothermia, initial encounter; F32.9 Major depressive disorder, single episode, unspecified; E86.0 Dehydration; T50.905A Adverse effect of unspecified drugs, medicaments and biological substances, initial encounter; E03.9 Hypothyroidism, unspecified; I25.2 Old myocardial infarction; Z98.51 Tubal ligation status; Z79.01 Long term (current) use of anticoagulants; Z79.899 Other long term (current) drug therapy; Z68.28 Body mass index [BMI] 28.0-28.9, adult; Z90.710 Acquired absence of both cervix and uterus
CPT/HCPCS: 36415; 36556; 51702; 70450; 71045; 80053; 80069; 80202; 80306; 80307; 81003; 82274; 82533; 83605; 83735; 84100; 84145; 84439; 84443; 84484; 85025; 86140; 87040; 87086; 87633; 87798; 87804; 93005; 93306; 94760; 96361; 96365; 96368; A4353; C9113; J0692; J1650; J3370; J3490; J7050; J7070; Q0169; U0001